=== PATIENT | male | born 1985 | race African-American/Black ===

== ENCOUNTER 2016-06-24 10:33 | Emergency (ER) | payer SELFPAY ==
[2016-06-24] MEDS ORDERED: hydrOXYzine 25 MG TAB ONE (10:47)
== END 2016-06-24 10:57 | disposition home or self-care (01) ==
LOC: BURERS 10:33 → EDBD 10:33 → BURERS 10:57
DX: R07.9 Chest pain, unspecified (principal)
CPT/HCPCS: 93005

== ENCOUNTER 2016-07-15 12:14 | Emergency (ER) | payer OTHER, SELFPAY ==
--- NOTE | 2016-07-15 14:36 | RAD ---
PORTABLE CHEST: Date: 07-15-16 Comparison: None. FINDINGS: This portable film at 1231 is taken in partial expiration. Therefore, the basilar lung markings are crowded and not all sections of the lung are seen equally well. There is some linear streaking in the right base which is most likely atelectasis. Otherwise, the lungs are clear. There are no effu sions. The heart size is normal and there is no vascular congestion or edema. The trachea is midli ne. IMPRESSION: Other than some minor basilar atelectasis, no acute findings. POS: HOME
== END 2016-07-15 13:00 | disposition home or self-care (01) ==
LOC: BURERS 12:14
DX: R07.2 Precordial pain (principal)
CPT/HCPCS: 71010; 93005; 94760